=== PATIENT | female | born 2000 | race Two or more races ===

== ENCOUNTER 2020-07-30 22:05 | Emergency (ER) | payer OTHER ==
[~2020-07-30] VITALS: Ht 162.6 cm; Wt 47.6 kg
[2020-07-30 22:50] VITALS: BP 115/66
== END 2020-07-31 00:22 | disposition left against medical advice (07) ==
LOC: ER 22:05
DX: T78.40XA Allergy, unspecified, initial encounter (principal); Z53.21 Procedure and treatment not carried out due to patient leaving prior to being seen by health care provider; X58.XXXA Exposure to other specified factors, initial encounter

== ENCOUNTER 2025-05-19 12:51 | Emergency (ER) | payer MEDICAID, OTHER ==
[~2025-05-19] VITALS: Ht 162.6 cm; Wt 47.0 kg
--- NOTE | 2025-05-19 13:27 | ED.PDOC ---
GENERAL ENGINEER HPI Comments 24y F who presents to the ED for chief complaint of abdominal pain. Pt states she has been having cramping abdominal pain since last night PM starting at approx 1900. Pt states she went to [facility] urgent care today and states she was told her urine test was positive and was referred to ED for further evaluation. Pt LMP, February 2025. Pt in the ED, has nausea and urinary urgency but otherwise denies bleeding, nausea,vomiting, diarrhea, or associated symptoms. Pt otherwise has stable vitals in the ED. Chief Complaint: Abdominal Pain Time Seen by MD: 13:24 Reviewed Notes: Medications, Allergies Allergies: Coded Allergies: NO KNOWN ALLERGIES (Unverified , 07/30/20) Information Source: Patient Mode of Arrival: Ambulatory Past Medical History PAST MEDICAL HISTORY: Denies Surgical History: Denies all surgeries SURGERY CONSULTANT History: Denies all SURGERY CONSULTANT Hx Family History Family History: Reviewed,noncontributory to illness Social History Smoker: Non-Smoker Alcohol: Denies ETOH Use Drugs: Denies Drug Use Lives In: Home Constitutional: denies: chills, diaphoresis, fatigue, fever, malaise, sweats, weakness, others EENTM: denies: blurred vision, double vision, ear bleeding, ear discharge, ear drainage, ear pain, ear ringing, eye pain, eye redness, hearing loss, mouth pain, mouth swelling, nasal discharge, nose bleeding, nose congestion, nose pain, photophobia, tearing, throat pain, throat swelling, voice changes, others Gastrointestinal: reports: abdominal pain, nausea; denies: abdomen distended, blood streaked bowels, constipated, diarrhea, dysphagia, difficulty swallowing, hematemesis, melena, poor appetite, poor fluid intake, rectal bleeding, rectal pain, vomiting, others Genitourinary: denies: abnormal vagina bleeding, burning, dyspareunia, dysuria, flank pain, frequency, hematuria, incontinence, pain, , vagina discharge, urgency, others Neurological: denies: dizziness, fainting, headache, left sided numbness, left sided weakness, numbness, paresthesia, pre-existing deficit, right sided numbness, right sided weakness, seizure, speech problems, tingling, tremors, weakness, others Musculoskeletal: denies: back pain, gout, joint pain, joint swelling, muscle pain, muscle stiffness, neck pain, others Integumetry: denies: bruises, change in color, change in hair/nails, dryness, laceration, lesions, lumps, rash, wounds, others Allergic/Immunocompromised: denies: Difficulty Healing, Frequent Infections, Hives, Itching, others Hematologic/Lymphatic: denies: anemia, blood clots, easy bleeding, easy bruising, swollen glands, others Endocrine: denies: excessive hunger, excessive sweating, excessive thirst, excessive urination, flushing, intolerance to cold, intolerance to heat, unexplained weight gain, unexplained weight loss, others Psychiatric: denies: anxiety, bipolar disorder, depression, hopeless, panic disorder, schizophrenia, sleepless, suicidal, others All Other Systems: Reviewed and Negative Physical Exam General Appearance: Mild Distress HEENT: Normal ENT Inspection, PERRL/EOMI Neck: Full Range of Motion, Non-Tender, Normal, Normal Inspection Respiratory: Chest Non-Tender, Lungs Clear, No Accessory Muscle Use, No Respiratory Distress, Normal Breath Sounds Cardiovascular: No Edema, No JVD, No Murmur, No Gallop, Normal Peripheral Pulses, Regular Rate/Rhythm Breast Exam: Deferred Gastrointestinal: No Organomegaly, No Pulsatile Mass, Normal Bowel Sounds, Soft, Suprapubic, Tenderness Genitalia: Deferred Pelvic: Deferred Rectal: Deferred Extremities: No calf tenderness, Normal capillary refill, Normal inspection, Normal range of motion, Non-tender, No pedal edema Neurologic: Alert, 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 Was a procedure done?: No Differential Diagnosis (SURGERY CONSULTANT) Vaginal Bleeding: - Incomplete, - Threatened, Ectopic , UTI Mass / Lesion: N/A Vaginal Discharge: , UTI Comments current , enteritis, gastriris, X-Ray, Labs, Meds, VS Vital Signs Date Time Temp Pulse Resp B/P (MAP) Pulse Ox O2 Delivery O2 Flow Rate FiO2 05/19/25 12:52 98.3 77 16 109/63 99 98.3 Lab Test 05/19/25 15:42 05/19/25 14:07 Range/Units Urine Color Light-yellow Yellow Urine Clarity Clear Clear Urine pH 6.0 5.0-9.0 Urine Specific [place] 1.020 1.001-1.035 Urine Protein Negative Negative Urine Ketones 2+ H Negative Urine Blood Negative Negative /uL Urine Nitrite Negative Negative Urine Bilirubin Negative Negative Urine Urobilinogen Normal Negative mg/dL Urine Leukocyte Esterase Trace Negative /uL Urine RBC 1 0 - 4 /hpf Urine Microscopic WBC 2 0-5 /HPF Urine Squamous Epithelial Cells Few <5 /hpf Urine Bacteria None seen None Seen /hpf Urine Mucus Few None Seen Urine Glucose Normal Normal mg/dL White Blood Count 9.3 4.4-10.8 10^3/uL Red Blood Count 4.36 4.0-5.20 10^6/uL Hemoglobin 14.1 12.2-16.2 g/dL Hematocrit 40.4 36.0-46.0 % Mean Corpuscular Volume 92.6 80.0-100.0 fL Mean Corpuscular Hemoglobin 32.4 H 28.0-32.0 pg Mean Corpuscular Hemoglobin Concent 35.0 32.0-36.0 g/dL Red Cell Distribution Width 13.7 11.8-14.3 % Platelet Count 191 140-450 10^3/uL Mean Platelet Volume 8.5 6.9-10.8 fL Neutrophils (%) (Auto) 83.8 H 37.0-80.0 % Lymphocytes (%) (Auto) 12.2 10.0-50.0 % Monocytes (%) (Auto) 3.7 0.0-12.0 % Eosinophils (%) (Auto) 0.2 0.0-7.0 % Basophils (%) (Auto) 0.1 0.0-2.0 % Neutrophils # (Auto) 7.8 1.6-8.6 10 ^3/uL Lymphocytes # (Auto) 1.1 0.4-5.4 10 ^3/uL Monocytes # (Auto) 0.3 0-1.3 10 ^3/uL Eosinophils # (Auto) 0 0-0.8 10 ^3/uL Basophils # (Auto) 0 0-0.2 10 ^3/uL Nucleated Red Blood Cells 0.0 % Sodium Level 137 136-145 mmol/L Potassium Level 3.6 3.5-5.1 mmol/L Chloride Level 105 98-107 mmol/L Carbon Dioxide Level 22 20-31 mmol/L Anion Gap 10 5-15 Blood Urea Nitrogen < 5 L 9-23 mg/dL Creatinine 0.63 0.550-1.02 mg/dL Glomerular Filtration Rate Calc 127 >90 mL/min BUN/Creatinine Ratio 7.9 L 10.0-20.0 Serum Glucose 77 74-106 mg/dL Calcium Level 9.5 8.7-10.4 mg/dL Beta HCG, Quantitative 62420.0 H 1.5-4.2 mIU/mL [place] [id number] Ph: [phone] DIAGNOSTIC IMAGING Diagnostic Imaging Report : [id number] Signed PATIENT: SERAFIN BACON ACCT: [id number] UNIT: [id number] : 2000 LOC: ER ROOM / BED: / AGE / SEX: 24 / F ADM STATUS: REG ER SERVICE [id number] ORDERING PHYSICIAN: BRIANDA SLAUGHTER MD PROCEDURE(s): OBUS - OB ULTRASOUND COMP GTR 14 WKS REASON: Abdominal cramps ORDER NUMBER(s): [id number], ACCESSION NUMBER(s): [id number] LIMITED OB ULTRASOUND > 14 WKS: HISTORY: Abdominal cramps TECHNIQUE: Multiple real-time grayscale images of the gravid uterus with duplex Doppler color flow and M-mode spectral analysis. TRANSDUCER: Transabdominal COMPARISON: None FINDINGS: IUP single live fetus at 15 weeks and 3 days based on composite averages of the BPD, head circumference, abdominal circumference and femur length Estimated weight 118 grams heart rate 148 beats per minute EUNICE is subjectively within normal limits. Deepest pocket measures 3.4 cm Cervix is closed and measures 3.3 cm Transverse right Presentation Right lateralPlacenta without previa or abruption. IMPRESSION: IUP single live fetus at 15 weeks and 3 days AUA corresponding to an BLANCA of 11/07/2025 ATED BY: DAVE PIERRE MD DICTATED DATE/TIME: 05/19/251417 SIGNED BY: DAVE PIERRE MD SIGNED DATE/TIME: 05/19/251417 CC: X-Ray, Labs, Meds, VS Comment Seen in the emergency department eventful Patient came to the emergency department because of abdominal pain and cramping she is she also have nausea and dysuria Ultrasound shows IUP at 15 weeks and three days with lateral placenta CBC 9300 with 83.8% neutrophils and H&H normal BNP negative Beta HCG 21080.0 Urine negative Patient will be discharged home to follow up with her director of consulting services Time of 1ST Reevaluation: 13:33 Reevaluation 1ST: Unchanged Time of 2ND Reevaluation: 16:06 Reevaluation 2ND: Improved Consultation: PCP, beverage steward Patient Education/Counseling: Diagnosis, Treatment, Prognosis, Need For Follow Up Family Education/Counseling: Diagnosis, Treatment, Prognosis, Need For Follow Up, No Family Present Departure 1 Departure Time of Disposition: 16:07 Impression: Primary Impression: Additional Impression: Abdominal cramping Disposition: 01 HOME / SELF CARE / HOMELESS Condition: Fair Additional Instructions: Follow up with the an director of consulting services Discharged With: Self Critical Care Note Critical Care Time?: No Stability Stability form required: No Heart Score Heart Score: Heart Score Response (Comments) Value History N/A 0 EKG N/A 0 Age <45 0 Risk Factors No known risk factors 0 Troponin N/A 0 Total 0 I personally scribed for BRIANDA SLAUGHTER MD ([email or web address]) on 05/19/25 at 13:27. Electronically submitted by Vince Abrams ([employer]). I personally scribed for BRIANDA SLAUGHTER MD ([email or web address]) on 05/19/25 at 14:22. Electronically submitted by Vince Abrams ([employer]). BRIANDA SLAUGHTER MD May 19, 2025 13:27
--- NOTE | 2025-05-19 14:20 | DVH ---
LIMITED OB ULTRASOUND > 14 WKS: HISTORY: Abdominal cramps TECHNIQUE: Multiple real-time grayscale images of the gravid uterus with duplex Doppler color flow an d M-mode spectral analysis. TRANSDUCER: Transabdominal COMPARISON: None FINDINGS: IUP single live fetus at 15 weeks and 3 days based on composite averages of the BPD, head circumferen ce, abdominal circumference and femur length Estimated weight 118 grams heart rate 148 beats per minute EUNICE is subjectively within normal limits. Deepest pocket measures 3.4 cm Cervix is closed and measures 3.3 cm Transverse right Presentation Right lateralPlacenta without previa or abruption. IMPRESSION: IUP single live fetus at 15 weeks and 3 days AUA corresponding to an BLANCA of 11/07/2025
[2025-05-19 14:27] LABS: Chloride 105 mmol/L (98-107); Potassium 3.6 mmol/L (3.5-5.1); Sodium 137 mmol/L (136-145)
[2025-05-19 14:28] LABS: Anion Gap 10 (5-15); Calcium 9.5 mg/dL (8.7-10.4); Carbon Dioxide 22 mmol/L (20-31)
[2025-05-19 14:33] LABS: Glucose 77 mg/dL (74-106)
[2025-05-19 14:35] LABS: BUN/Creatinine Ratio 7.9 (10.0-20.0); Blood Urea Nitrogen < 5 mg/dL (9-23)
[2025-05-19 14:40] LABS: Hematocrit 40.4 % (36.0-46.0); Hemoglobin 14.1 g/dL (12.2-16.2); Mean Corpuscular Hemoglobin 32.4 pg (28.0-32.0); Mean Corpuscular Volume 92.6 fL (80.0-100.0); Nucleated Red Blood Cells % 0.0 %
[2025-05-19 16:01] LABS: Urine Protein, UAD Negative (Negative)
[2025-05-19 16:37] VITALS: BP 102/53; PULSE 81; RESP 18; TEMP 98.1; O2SAT 100
== END 2025-05-19 16:38 | disposition home or self-care (01) ==
LOC: ER 12:51
DX: O26.892 Other specified pregnancy related conditions, second trimester (principal); O00.80 Other ectopic pregnancy without intrauterine pregnancy; Z3A.15 15 weeks gestation of pregnancy
CPT/HCPCS: 36415; 76805; 80048; 81001; 84702; 85025